=== PATIENT | female | born 1960 | race Caucasian/White ===

== ENCOUNTER 2024-07-01 19:45 | Emergency (ER) | payer MEDICARE, SELFPAY ==
[2024-07-01 20:04] VITALS: BP 152/79; PULSE 80; RESP 16; TEMP 36.4; O2SAT 100
--- NOTE | 2024-07-01 20:09 | ED_ITS ---
HPI - Skin/Abscess/Foreign Bdy General Chief complaint: Skin/Abscess/Foreign Body Stated complaint: inssect bite Time Seen by Provider: 07/01/24 20:09 Source: patient Mode of arrival: ambulatory Limitations: no limitations History of Present Illness HPI narrative: Patient reports insect bite to left ankle for approximately 2 weeks. He was seen in the ER in her [place] in [facility] and prescribed Keflex. Patient felt that cephalexin was not working and went to walk-in clinic at her primary care office and was given an IM injection of antibiotics. Is unsure of name of antibiotic. Has finished cephalexin prescription and continues to have some redness and swelling. Patient concerned she may need another antibiotic. No drainage. Afebrile. Ambulatory with steady gait. All systems reviewed and negative except as noted above. Related Data Home Medications ?Medication ?Instructions ?Recorded ?Confirmed ?Last Taken ?Type bupropion HCl 300 mg 24 hr tablet, mg PO 07/01/24 Unknown History extended release estradiol 0.01% (0.1 mg/gram) vaginal 07/01/24 Unknown History vaginal cream metoprolol tartrate 25 mg tablet mg 07/01/24 Unknown History metoprolol tartrate 50 mg tablet mg 07/01/24 Unknown History Allergies Allergy/AdvReac Type Severity Reaction Status Date / Time No Known Allergies Allergy Verified 07/01/24 19:59 Review of Systems Review of Systems: CONSTITUTIONAL: Denies fever, chills, or sweats. EYES: Denies visual changes, redness, or discharge. ENT: Denies rhinorrhea, congestion, sore throat, or otalgia. CARDIOVASCULAR: Denies chest pain, palpitations, or edema. RESPIRATORY: Denies cough or dyspnea. GASTROINTESTINAL: Denies abdominal pain, nausea, vomiting, or diarrhea. GENITOURINARY: Denies dysuria or hematuria. SKIN: Denies rash or itching. Reports insect bite to left ankle with redness and swelling. MUSCULOSKELETAL: Denies back pain, joint pain, or myalgia. NEUROLOGIC: Denies headache, numbness, or weakness. PSYCHIATRIC: Denies anxiety or depression. All other systems reviewed are negative, except as documented in HPI. PMFSH Comments At time of signature, agree with nursing past medical, surgical, social and family history. There is no relevant family history pertinent to the presenting complaint. Exam Narrative: GENERAL: This is a well-nourished, well-developed patient, in no apparent distress. HEAD: normocephalic, atraumatic. EYES: PERRL. Sclera clear/white. Vision is grossly intact. EARS: External ears normal NOSE: External nose normal NECK: Neck supple, non-tender without lymphadenopathy, masses or thyromegaly. CARDIOVASCULAR: Regular rate and rhythm without murmurs, gallops, or rubs. RESPIRATORY: Clear to auscultation. Breath sounds equal bilaterally. No wheezes, rales, or rhonchi. SKIN: warm, Dry, intact with no suspicious lesions or rash, good texture and turgor. Insect bite to posterior aspect of left ankle approximately 2 cm diameter. Erythematous with scab to center. No fluctuance concerning for abscess. Tender on palpation. With mild warmth. No drainage noted. NEURO: awake, alert, and oriented to person, place and time. There were no obvious focal neurologic abnormalities. EXTREMITIES: No joint tenderness, effusion, or edema noted. Course Course Level of Care: Express Care Visit Vital Signs Vital signs: Vital Signs Temperature 36.4 C L 07/01/24 20:04 Pulse Rate 80 07/01/24 20:04 Respiratory Rate 16 07/01/24 20:04 Blood Pressure 152/79 H 07/01/24 20:04 Pulse Oximetry 100 07/01/24 20:04 Temperature 36.4 C L 07/01/24 20:04 Pulse Rate 80 07/01/24 20:04 Respiratory Rate 16 07/01/24 20:04 Blood Pressure 152/79 H 07/01/24 20:04 Pulse Oximetry 100 07/01/24 20:04 Reviewed MDM - Skin/Abscess/Foreign Bdy MDM Narrative Medical decision making narrative: Patient is aware of diagnosis, understands and agrees to treatment plan. Anticipatory guidance given. Patient agrees to follow-up as directed and is aware of reasons to seek care at the emergency department. Portions of this record may have been created with voice recognition software Will treat patient with doxycycline for continued cellulitis from insect bite infection. Recommend follow-up with her primary care physician this week. Patient agrees with plan of care. She is well-appearing, nontoxic. Afebrile. Distal neurovascularly intact. Discharge Plan Discharge Clinical Impression: Infected insect bite of left ankle Patient Disposition: Home, Self-Care Condition: Stable Instructions: Antibiotic Form, Insect Bite or Sting (ED) Additional Instructions: Take antibiotic as prescribed until gone. Take tylenol every 6 to 8 hours as neded for pain. Elevate when at rest. See your doctor if not improving. Patient Language: Prydeinig Prescriptions: New doxycycline hyclate 100 mg capsule 100 mg PO BID 7 Days Qty: 14 0RF No Action metoprolol tartrate 50 mg tablet estradiol 0.01 % (0.1 mg/gram) cream VAGINAL bupropion HCl 300 mg tablet extended release 24 hr PO metoprolol tartrate 25 mg tablet Follow-up/Referrals: UNKNOWN,DOCTOR [Primary Care Provider] - Time of Disposition: 20:19
== END 2024-07-01 20:25 | disposition home or self-care (01) ==
PROVIDERS: Emergency Provider Nurse Practitioner Family
DX: S90.562A Insect bite (nonvenomous), left ankle, initial encounter (principal); W57.XXXA Bitten or stung by nonvenomous insect and other nonvenomous arthropods, initial encounter
CPT/HCPCS: 99203; G0463